=== PATIENT | female | born 1990 | race Caucasian/White ===

== ENCOUNTER 2016-10-13 06:22 | Inpatient (IN) | payer BC ==
[2016-10-13] VITALS (8 sets, daily range): BP systolic 108–147; BP diastolic 63–87
[~2016-10-13] VITALS: Ht 182.9 cm; Wt 110.2 kg
[~2016-10-13 06:22] MED LIST: PRENATAL TABLE1 EAC3 PO; TUMS500 MG PO
[2016-10-13 10:07] LABS: INTER. NORMALIZED RATIO 0.9; PROTHROMBIN TIME 9.5 (9.2-11.2); PTT 28.7 (25-32)
[2016-10-13] MEDS ORDERED: ENDOCET 5-3251 EACH PO (10:53)
[2016-10-13] MEDS ORDERED: IBUPROFEN800 MG PO (10:53)
[2016-10-14 03:12] VITALS: BP 107/64
[2016-10-14 06:48] LABS: EOSINOPHIL (%) 0.2 % (0-5); HEMATOCRIT 28.7 % (36.0-46.0); IMMATURE GRANULOCYTE (%) 0.6 % (0.0-0.7); IMMATURE GRANULOCYTE COUNT 0.1 K/uL; LYMPHOCYTE COUNT 1.9 K/uL (1.0-2.8); MCH 30.6 PG (29.0-34.0); MCHC 33.1 G/DL (30.0-36.0); MCV 92.6 FL (83-99); MEAN PLAT.VOLUME 10.3 uM^3 (9.5-12.4); MONOCYTE (%) 8.4 % (3-12); NEUTROPHIL (%) 74.7 % (45-76); PLATELET COUNT 138 K/uL (156-360); RBC DIS.WIDTH-CV 13.8 % (11.8-14.6); RBC DIS.WIDTH-SD 46.6 % (39-53); WHITE BLOOD COUNT 12.1 K/uL (4.1-10.2)
[2016-10-14 07:04] VITALS: BP 110/73
[2016-10-14 11:40] VITALS: BP 120/72
[2016-10-14 15:28] VITALS: BP 114/64
== END 2016-10-15 14:30 | disposition home or self-care (01) | DRG 765 ==
LOC: 2WEST 06:22 → 2SOUTH 10:05 → 2WEST 10-15 14:30
PROVIDERS: Anesthesiology; Obstetrics & Gynecology
PROC: 10D00Z1 Extraction of Products of Conception, Low, Open Approach (ICD-10-PCS; principal; 2016-10-13)
DX: O34.211 Maternal care for low transverse scar from previous cesarean delivery (principal); D68.0 Von Willebrand disease; E66.9 Obesity, unspecified; O99.12 Other diseases of the blood and blood-forming organs and certain disorders involving the immune mechanism complicating childbirth; N85.8 Other specified noninflammatory disorders of uterus; O99.214 Obesity complicating childbirth; Z68.30 Body mass index [BMI] 30.0-30.9, adult; Z3A.39 39 weeks gestation of pregnancy; Z37.0 Single live birth
CPT/HCPCS: 36415; 85025; 85610; 85730; 86900; 86901; J0690; J1100; J2274; J2405; J2597; J3010; J7050; J7120

== ENCOUNTER 2017-09-23 16:18 | Inpatient (IN) | payer BC ==
[~2017-09-23] VITALS: Ht 182.9 cm; Wt 109.0 kg
[~2017-09-23 16:18] MED LIST changes: +ENDOCET 5-3251 EACH PO; +IBUPROFEN800 MG PO
[2017-09-23 16:39] VITALS: BP 123/71
[2017-09-23] MEDS ORDERED: ENDOCET 5-3251 EACH PO (19:56)
[2017-09-23 21:25] VITALS: BP 131/73
[2017-09-23 22:05] VITALS: BP 128/71
[2017-09-23 23:28] VITALS: BP 119/63
[2017-09-24] VITALS (8 sets, daily range): BP systolic 121–138; BP diastolic 61–85
[2017-09-24 07:19] LABS: BASOPHIL (%) 0.1 % (0-1); EOSINOPHIL (%) 0 % (0-5); HEMATOCRIT 29.7 % (36.0-46.0); HEMOGLOBIN 9.5 G/DL (11.9-15.5); IMMATURE GRANULOCYTE (%) 0.6 % (0.0-0.7); LYMPHOCYTE (%) 10.2 % (15-42); LYMPHOCYTE COUNT 1.2 K/uL (1.0-2.8); MCH 29.1 PG (29.0-34.0); MCV 91.1 FL (83-99); MONOCYTE (%) 7.4 % (3-12); MONOCYTE COUNT 0.9 K/uL (0-0.8); NEUTROPHIL (%) 81.7 % (45-76); PLATELET COUNT 163 K/uL (156-360); RBC DIS.WIDTH-CV 13.7 % (11.8-14.6); RBC DIS.WIDTH-SD 46.3 % (39-53); RED BLOOD COUNT 3.26 M/uL (3.80-5.20); WHITE BLOOD COUNT 12.2 K/uL (4.1-10.2)
[2017-09-25 03:12] VITALS: BP 131/79
[2017-09-25 06:35] VITALS: BP 120/68
[2017-09-25] MEDS ORDERED: MOTRIN800 MG PO (11:05)
[2017-09-25 11:30] VITALS: BP 121/71
[2017-09-25 14:45] VITALS: BP 120/74
== END 2017-09-25 15:45 | disposition home or self-care (01) | DRG 765 ==
LOC: LDRP-OP → 2WEST 16:19
PROVIDERS: Obstetrics & Gynecology Obstetrics
PROC: 10D00Z1 Extraction of Products of Conception, Low, Open Approach (ICD-10-PCS; principal; 2017-09-23)
PROC: 0UT70ZZ Resection of Bilateral Fallopian Tubes, Open Approach (ICD-10-PCS; principal; 2017-09-23)
DX: O34.211 Maternal care for low transverse scar from previous cesarean delivery (principal); O42.92 Full-term premature rupture of membranes, unspecified as to length of time between rupture and onset of labor; O99.12 Other diseases of the blood and blood-forming organs and certain disorders involving the immune mechanism complicating childbirth; D68.0 Von Willebrand disease; O99.214 Obesity complicating childbirth; E66.9 Obesity, unspecified; Z68.31 Body mass index [BMI] 31.0-31.9, adult; Z30.2 Encounter for sterilization; Z3A.39 39 weeks gestation of pregnancy; Z37.0 Single live birth
CPT/HCPCS: 36415; 85025; 86850; 86900; 86901; 88302; J0330; J0690; J2274; J2597; J3010; J7050; J7120; S0020